=== PATIENT | female | born 1955 | race African-American/Black ===

== ENCOUNTER 2018-09-28 19:32 | Inpatient (IN) | payer MEDICAID ==
[~2018-09-28] VITALS: Ht 160 cm; Wt 79.2 kg
--- NOTE | 2018-09-28 19:36 | NUR ---
Pt presents via [facility], was walking and R side gave out and pt fell, did not strike head and no LOC, 911 called and brought here, evaluated by MD prior to going to CT. Pt with R side weakness R leg, R arm, R side facial droop noted. To CT immediately with ACLS care.
--- NOTE | 2018-09-28 19:38 | NUR ---
WOJCIECH veronica blood and given to lab, labeled once pt registered.
--- NOTE | 2018-09-28 19:55 | NUR ---
ERP at bedside for patient assessment.
[2018-09-28] MEDS ORDERED: OMNIPAQUE 350 MG/ML, 100ML BOTTLE ONE (19:57)
[2018-09-28 19:58] LABS: INTERNATIONAL NORMALIZED RATIO 0.99 (0.93-1.1); PROTHROMBIN TIME 10.4 Seconds (9.6-11.5)
--- NOTE | 2018-09-28 20:04 | NUR ---
dg ( [facility] ) [phone]
[2018-09-28 20:14] LABS: BASOPHILS # (AUTO) 0.03 x10^3/uL (0-0.1); BASOPHILS % (AUTO) 0 % (0-1); EOSINOPHILS # (AUTO) 0.02 x10^3/uL (0-0.4); EOSINOPHILS % (AUTO) 0 % (1-7); LYMPHOCYTES % (AUTO) 45 % (22-44); MD NO; MEAN CORPUSCULAR HEMOGLOBIN 28.9 pg (27.0-34.8); MEAN CORPUSCULAR VOLUME 90.6 fL (80-100); MEAN PLATELET VOLUME 10.2 fL (7.4-10.4); MONOCYTES # (AUTO) 0.52 x10^3/uL (0.2-0.8); MONOCYTES % (AUTO) 6 % (2-9); NEUTROPHILS # (AUTO) 4.18 x10^3/uL (1.8-6.8); NEUTROPHILS % (AUTO) 48 % (42-75); PLATELET COUNT 285 x10^3/uL (130-400); RED BLOOD COUNT 4.93 x10^6/uL (3.82-5.3); RED CELL DISTRIBUTION WIDTH 18.4 % (9.6-15.2)
[2018-09-28] MEDS ORDERED: ASPIRIN 81 MG TABLET CHEW ONE (20:25)
--- NOTE | 2018-09-28 20:27 | NUR ---
Neurologist at bedside. patient urinated on bed. cleaned.
--- NOTE | 2018-09-28 20:29 | NUR ---
per patient she woke up this morning and unable to get up in bed.
[2018-09-28] MEDS ORDERED: ASPIRIN 81 MG TABLET CHEW PO ONE (20:30)
[2018-09-28] MEDS ORDERED: LABETALOL 5MG/ML, 20ML IVPush ONE (20:30)
--- NOTE | 2018-09-28 20:56 | NUR ---
bed glass provided. PA hospitalist at bedside.
[2018-09-28] MEDS ORDERED: SODIUM CHLORIDE 0.9%, 500ML IVBOLUS ONE (21:00)
--- NOTE | 2018-09-28 21:17 | NUR ---
bed assigned. report to KRISTA Maxwell.
[2018-09-28] MEDS ORDERED: BISACODYL 10 MG SUPP PR PRN (21:30)
[2018-09-28] MEDS ORDERED: POLYETHYLENE GLYCOL 17 GM PACKET PO PRN (21:30)
[2018-09-28] MEDS ORDERED: DOCUSATE 100 MG CAPSULE PO PRN (21:30)
[2018-09-28] MEDS ORDERED: LABETALOL 5MG/ML, 20ML IV PRN (21:30)
[2018-09-28] MEDS ORDERED: ONDANSETRON 4 MG TABLET PO PRN (21:30)
[2018-09-28 21:55] VITALS: BP 216/126
[2018-09-28 22:00] VITALS: BP 208/135
[2018-09-28 22:09] LABS: HEMOGLOBIN A1C 7.9 % (4.2-6.3)
[2018-09-28 22:39] VITALS: BP 208/135
[2018-09-28] MEDS: ATORVASTATIN 40 MG TABLET PO SCH (23:24)
[2018-09-28 23:26] VITALS: BP 188/123
[2018-09-29] VITALS (9 sets, daily range): BP systolic 171–236; BP diastolic 105–139
[2018-09-29] MEDS: INSULIN LISPRO 100 UNITS/ML, PEN SQ-INSULIN SCH ×5 (00:33→20:31)
[2018-09-29 05:33] LABS: BASOPHILS # (AUTO) 0.01 x10^3/uL (0-0.1); BASOPHILS % (AUTO) 0 % (0-1); EOSINOPHILS # (AUTO) 0.01 x10^3/uL (0-0.4); EOSINOPHILS % (AUTO) 0 % (1-7); LYMPHOCYTES # (AUTO) 2.43 x10^3/uL (1-3.4); LYMPHOCYTES % (AUTO) 29 % (22-44); MD NO; MEAN CORPUSCULAR HEMOGLOBIN 28.5 pg (27.0-34.8); MEAN CORPUSCULAR HGB CONC 31.8 g/dL (32.4-35.8); MEAN CORPUSCULAR VOLUME 89.6 fL (80-100); MEAN PLATELET VOLUME 9.9 fL (7.4-10.4); MONOCYTES # (AUTO) 0.28 x10^3/uL (0.2-0.8); MONOCYTES % (AUTO) 3 % (2-9); NEUTROPHILS # (AUTO) 5.73 x10^3/uL (1.8-6.8); NEUTROPHILS % (AUTO) 68 % (42-75); PLATELET COUNT 259 x10^3/uL (130-400); RED BLOOD COUNT 4.57 x10^6/uL (3.82-5.3); RED CELL DISTRIBUTION WIDTH 18.4 % (9.6-15.2)
[2018-09-29 06:11] LABS: ALANINE AMINOTRANSFERASE 20 U/L (12-78); ANION GAP 11 mmol/L (5-15); CHLORIDE 104 mmol/L (98-107); CHOLESTEROL, TOTAL 385 mg/dL (140-239)
[2018-09-29 06:13] LABS: ALKALINE PHOSPHATASE 171 U/L (45-117); BILIRUBIN,TOTAL 0.7 mg/dL (0.2-1.0); CHOL/HDL RATIO 5.4; HDL CHOL % 18 % (28-40); HDL CHOLESTEROL (DIRECT) 71 mg/dL (40-60); LDL CHOLESTEROL,CALCULATED 277 mg/dL (54-169); LDL/HDL RATIO 3.9 (0.5-3.0); TOTAL PROTEIN 7.6 g/dL (6.4-8.2); TRIGLYCERIDES 186 mg/dL (50-200); VLDL CHOLESTEROL 37 mg/dL (0-25)
[2018-09-29] MEDS: ASPIRIN 81 MG TABLET CHEW PO/NG SCH (08:52)
[2018-09-29] MEDS: ATORVASTATIN 40 MG TABLET PO SCH (19:46)
[2018-09-29] MEDS: AMLODIPINE 5 MG TABLET PO SCH (19:46)
[2018-09-29 22:17] LABS: MICROSCOPIC INDICATED
[2018-09-29 22:18] LABS: CULTURE INDICATED? YES
[2018-09-30] VITALS (7 sets, daily range): BP systolic 172–201; BP diastolic 99–133
[2018-09-30] MEDS: ACETAMINOPHEN 650 MG/20.3 ML UDC PO PRN ×4 (04:21→21:59)
[2018-09-30] MEDS: INSULIN LISPRO 100 UNITS/ML, PEN SQ-INSULIN SCH ×4 (07:00→21:08)
[2018-09-30 07:03] LABS: ANION GAP 13 mmol/L (5-15); CHLORIDE 101 mmol/L (98-107); CREATININE 1.73 mg/dL (0.55-1.02)
[2018-09-30] MEDS: CLOPIDOGREL 75 MG TABLET PO SCH (08:50)
[2018-09-30] MEDS: AMLODIPINE 5 MG TABLET PO SCH ×2 (08:50→21:07)
[2018-09-30] MEDS: ASPIRIN 81 MG TABLET CHEW PO/NG SCH (08:51)
[2018-09-30] MEDS: SODIUM CHLORIDE 0.9% 1,000 ML IV SCH ×3 (09:30→23:08)
[2018-09-30] MEDS: METOPROLOL SUCCINATE 50 MG TAB.ER.24H PO SCH (12:47)
[2018-09-30] MEDS: ATORVASTATIN 80 MG TABLET PO SCH (21:07)
[2018-10-01] VITALS (7 sets, daily range): BP systolic 153–194; BP diastolic 91–126
[2018-10-01] MEDS: ACETAMINOPHEN 650 MG/20.3 ML UDC PO PRN (02:03)
[2018-10-01] MEDS: METOPROLOL SUCCINATE 50 MG TAB.ER.24H PO SCH (05:02)
[2018-10-01] MEDS: SODIUM CHLORIDE 0.9% 1,000 ML IV SCH (05:03)
[2018-10-01 05:17] LABS: ANION GAP 11 mmol/L (5-15); CALCIUM 8.6 mg/dL (8.5-10.1); CHLORIDE 107 mmol/L (98-107)
[2018-10-01 05:20] LABS: CREATININE 1.54 mg/dL (0.55-1.02)
[2018-10-01 05:34] LABS: MEAN CORPUSCULAR HEMOGLOBIN 27.8 pg (27.0-34.8); MEAN CORPUSCULAR HGB CONC 30.9 g/dL (32.4-35.8); MEAN CORPUSCULAR VOLUME 89.9 fL (80-100); MEAN PLATELET VOLUME 10.5 fL (7.4-10.4); PLATELET COUNT 263 x10^3/uL (130-400); RED BLOOD COUNT 4.57 x10^6/uL (3.82-5.3); RED CELL DISTRIBUTION WIDTH 18.8 % (9.6-15.2)
[2018-10-01 05:47] LABS: MD YES
[2018-10-01 05:50] LABS: <PLATELET ESTIMATE> ADEQUATE; <PLT MORPHOLOGY> NORMAL PLT MORPH; ANISOCYTOSIS 1+; EOS#(MANUAL) 0.17 x10^3/uL (0.0-0.4); EOS% (MANUAL) 2 % (1-7); LYMPH#(MANUAL) 2.02 x10^3/uL (1-3.4); LYMPHS% (MANUAL) 24 % (22-44); MONOS#(MANUAL) 0.25 x10^3/uL (0.3-2.7); MONOS% (MANUAL) 3 % (2-9); SEG#(MANUAL) 5.96 x10^3/uL (1.8-6.8); SEGS% (MANUAL) 71 % (42-75)
[2018-10-01] MEDS ORDERED: METOPROLOL SUCCINATE 50 MG TAB.ER.24H PO SCH (06:00)
[2018-10-01] MEDS: INSULIN LISPRO 100 UNITS/ML, PEN SQ-INSULIN SCH ×4 (07:00→21:00)
[2018-10-01] MEDS: CLOPIDOGREL 75 MG TABLET PO SCH (10:37)
[2018-10-01] MEDS: ASPIRIN 81 MG TABLET CHEW PO/NG SCH (10:37)
[2018-10-01] MEDS: hydrALAzine 20 MG/ML, 1ML IV PRN ×2 (10:38→20:11)
[2018-10-01] MEDS: AMLODIPINE 5 MG TABLET PO SCH ×2 (10:38→21:00)
[2018-10-01] MEDS ORDERED: CHLORDIAZEPOXIDE 25 MG CAPSULE PO PRN ×2 (14:30)
[2018-10-01] MEDS ORDERED: CHLORDIAZEPOXIDE 10 MG CAPSULE PO PRN (14:30)
[2018-10-01] MEDS: CHLORDIAZEPOXIDE 25 MG CAPSULE PO PRN ×2 (14:58→15:11)
[2018-10-01] MEDS ORDERED: LORazepam 2 MG/ML, 1ML IV PRN ×5 (21:00)
[2018-10-01] MEDS: ATORVASTATIN 80 MG TABLET PO SCH (21:00)
[2018-10-02] VITALS (10 sets, daily range): BP systolic 138–185; BP diastolic 80–99
[2018-10-02] MEDS: hydrALAzine 20 MG/ML, 1ML IV PRN ×3 (00:34→20:32)
[2018-10-02] MEDS: METOPROLOL SUCCINATE 50 MG TAB.ER.24H PO SCH (05:22)
[2018-10-02 06:39] LABS: CHLORIDE 108 mmol/L (98-107)
[2018-10-02 06:47] LABS: ANION GAP 14 mmol/L (5-15); CALCIUM 8.9 mg/dL (8.5-10.1); CREATININE 1.57 mg/dL (0.55-1.02)
[2018-10-02] MEDS: INSULIN LISPRO 100 UNITS/ML, PEN SQ-INSULIN SCH ×4 (07:00→20:32)
[2018-10-02] MEDS: MULTIVITAMINS/MINERALS TABLET PO SCH (08:59)
[2018-10-02] MEDS: FOLIC ACID 1 MG TABLET PO SCH (08:59)
[2018-10-02] MEDS: ASPIRIN 81 MG TABLET CHEW PO/NG SCH (09:00)
[2018-10-02] MEDS: CLOPIDOGREL 75 MG TABLET PO SCH (09:00)
[2018-10-02] MEDS: AMLODIPINE 5 MG TABLET PO SCH ×2 (09:00→20:14)
[2018-10-02] MEDS ORDERED: THIAMINE 100MG TABLET PO SCH (09:00)
[2018-10-02] MEDS ORDERED: LORazepam 2 MG/ML, 1ML IVPush PRN (11:00)
[2018-10-02] MEDS ORDERED: THIAMINE 100 MG in SODIUM CHLORIDE 0.9% 50 ML IV SCH (11:00)
[2018-10-02] MEDS: POTASSIUM CHLORIDE 20 MEQ, MAGNESIUM SULFATE 1 GM, MVI ADULT 10 ML, THIAMINE 200 MG, FO... IV SCH (11:30)
--- NOTE | 2018-10-02 12:23 | NUR ---
NPO Addendum: 10/02/18 at [address] Amended: Links added.
[2018-10-02] MEDS: ATORVASTATIN 80 MG TABLET PO SCH (20:14)
[2018-10-02] MEDS ORDERED: SODIUM CHLORIDE 0.9% 1,000 ML IV SCH (21:00)
[2018-10-03] VITALS (8 sets, daily range): BP systolic 147–182; BP diastolic 73–109
[2018-10-03] MEDS: METOPROLOL SUCCINATE 50 MG TAB.ER.24H PO SCH (04:57)
[2018-10-03 05:14] LABS: MEAN CORPUSCULAR HEMOGLOBIN 29.3 pg (27.0-34.8); MEAN CORPUSCULAR VOLUME 91.5 fL (80-100); MEAN PLATELET VOLUME 10.3 fL (7.4-10.4); PLATELET COUNT 190 x10^3/uL (130-400); RED BLOOD COUNT 2.89 x10^6/uL (3.82-5.3); RED CELL DISTRIBUTION WIDTH 19.4 % (9.6-15.2)
[2018-10-03 05:15] LABS: ANION GAP 10 mmol/L (5-15); CALCIUM 8.3 mg/dL (8.5-10.1); CHLORIDE 114 mmol/L (98-107)
[2018-10-03 05:18] LABS: CREATININE 1.78 mg/dL (0.55-1.02)
[2018-10-03 05:54] LABS: MD YES
[2018-10-03 05:56] LABS: <PLATELET ESTIMATE> ADEQUATE; <PLT MORPHOLOGY> NORMAL PLT MORPH; ANISOCYTOSIS 1+; LYMPH#(MANUAL) 1.23 x10^3/uL (1-3.4); LYMPHS% (MANUAL) 14 % (22-44); SEG#(MANUAL) 7.57 x10^3/uL (1.8-6.8); SEGS% (MANUAL) 86 % (42-75)
[2018-10-03] MEDS: INSULIN LISPRO 100 UNITS/ML, PEN SQ-INSULIN SCH ×4 (07:22→23:36)
[2018-10-03 07:53] LABS: ACETONE, SERUM Large (80mg/dL) mg/dL (Negative)
[2018-10-03 08:22] LABS: FIO2 ROOM AIR %
[2018-10-03 08:35] LABS: ANION GAP 10 mmol/L (5-15); CALCIUM 8.5 mg/dL (8.5-10.1); CHLORIDE 116 mmol/L (98-107)
[2018-10-03] MEDS: LACTATED RINGERS 1,000 ML IV SCH ×2 (09:28→23:42)
[2018-10-03] MEDS ORDERED: SODIUM CHLORIDE 0.9%, 500ML IVBOLUS ONE (09:30)
[2018-10-03 09:49] LABS: % IRON SATURATION 65 % (20-55); IRON LEVEL 149 mcg/dL (50-170); TOTAL IRON BINDING CAPACITY 230 mcg/dL (250-450)
[2018-10-03] MEDS: hydrALAzine 20 MG/ML, 1ML IV PRN ×2 (11:28→16:16)
[2018-10-03] MEDS: POTASSIUM CHLORIDE 20 MEQ, MAGNESIUM SULFATE 1 GM, MVI ADULT 10 ML, THIAMINE 200 MG, FO... IV SCH (12:02)
[2018-10-03] MEDS: FOLIC ACID 1 MG TABLET PO SCH (14:51)
[2018-10-03] MEDS: MULTIVITAMINS/MINERALS TABLET PO SCH (14:51)
[2018-10-03] MEDS: AMLODIPINE 5 MG TABLET PO SCH ×2 (14:52→23:36)
[2018-10-03] MEDS: CLOPIDOGREL 75 MG TABLET PO SCH (14:52)
[2018-10-03] MEDS: ASPIRIN 81 MG TABLET CHEW PO/NG SCH (14:52)
[2018-10-03 19:18] LABS: ANION GAP 10 mmol/L (5-15); CALCIUM 9.2 mg/dL (8.5-10.1); CHLORIDE 119 mmol/L (98-107)
[2018-10-03 19:19] LABS: CREATININE 1.65 mg/dL (0.55-1.02)
[2018-10-03] MEDS: ATORVASTATIN 80 MG TABLET PO SCH (23:36)
[2018-10-03] MEDS: INSULIN GLARGINE 100 UNITS/ML, PEN SQ-INSULIN SCH (23:37)
[2018-10-04] VITALS (7 sets, daily range): BP systolic 145–187; BP diastolic 82–94
[2018-10-04] MEDS: hydrALAzine 20 MG/ML, 1ML IV PRN ×2 (00:57→18:46)
[2018-10-04 06:03] LABS: BASOPHILS # (AUTO) 0.03 x10^3/uL (0-0.1); BASOPHILS % (AUTO) 0 % (0-1); EOSINOPHILS % (AUTO) 0 % (1-7); LYMPHOCYTES # (AUTO) 1.62 x10^3/uL (1-3.4); LYMPHOCYTES % (AUTO) 11 % (22-44); MD NO; MEAN CORPUSCULAR HEMOGLOBIN 29.8 pg (27.0-34.8); MEAN CORPUSCULAR HGB CONC 32.3 g/dL (32.4-35.8); MEAN PLATELET VOLUME 10.4 fL (7.4-10.4); MONOCYTES # (AUTO) 0.63 x10^3/uL (0.2-0.8); MONOCYTES % (AUTO) 4 % (2-9); NEUTROPHILS # (AUTO) 12.46 x10^3/uL (1.8-6.8); NEUTROPHILS % (AUTO) 85 % (42-75); PLATELET COUNT 174 x10^3/uL (130-400); RED BLOOD COUNT 2.66 x10^6/uL (3.82-5.3); RED CELL DISTRIBUTION WIDTH 19.6 % (9.6-15.2)
[2018-10-04 06:10] LABS: ANION GAP 11 mmol/L (5-15); CALCIUM 9.4 mg/dL (8.5-10.1); CHLORIDE 118 mmol/L (98-107)
[2018-10-04 06:12] LABS: CREATININE 1.68 mg/dL (0.55-1.02)
[2018-10-04] MEDS: MULTIVITAMINS/MINERALS TABLET PO SCH (08:20)
[2018-10-04] MEDS: ASPIRIN 81 MG TABLET CHEW PO/NG SCH (08:20)
[2018-10-04] MEDS: FOLIC ACID 1 MG TABLET PO SCH (08:21)
[2018-10-04] MEDS: CLOPIDOGREL 75 MG TABLET PO SCH (08:21)
[2018-10-04] MEDS: METOPROLOL TARTRATE 25 MG TABLET NG SCH ×2 (08:21→17:06)
[2018-10-04] MEDS: AMLODIPINE 5 MG TABLET PO SCH ×2 (08:21→21:22)
[2018-10-04] MEDS: INSULIN LISPRO 100 UNITS/ML, PEN SQ-INSULIN SCH ×4 (08:22→21:23)
[2018-10-04] MEDS: LACTATED RINGERS 1,000 ML IV SCH ×2 (12:27→23:45)
[2018-10-04] MEDS: POTASSIUM CHLORIDE 20 MEQ, MAGNESIUM SULFATE 1 GM, MVI ADULT 10 ML, THIAMINE 200 MG, FO... IV SCH (13:04)
[2018-10-04 19:02] LABS: MEAN CORPUSCULAR HEMOGLOBIN 29.5 pg (27.0-34.8); MEAN CORPUSCULAR HGB CONC 32.3 g/dL (32.4-35.8); MEAN CORPUSCULAR VOLUME 91.4 fL (80-100); MEAN PLATELET VOLUME 10.1 fL (7.4-10.4); PLATELET COUNT 176 x10^3/uL (130-400); RED CELL DISTRIBUTION WIDTH 19.9 % (9.6-15.2)
[2018-10-04 19:43] LABS: MD YES
[2018-10-04 19:45] LABS: BASOS#(MANUAL) 0.12 x10^3/uL (0-0.1); BASOS% (MANUAL) 1 % (0-1); LYMPH#(MANUAL) 1.95 x10^3/uL (1-3.4); LYMPHS% (MANUAL) 16 % (22-44); MONOS#(MANUAL) 0.49 x10^3/uL (0.3-2.7); MONOS% (MANUAL) 4 % (2-9); SEG#(MANUAL) 9.64 x10^3/uL (1.8-6.8); SEGS% (MANUAL) 79 % (42-75)
[2018-10-04 19:46] LABS: <PLATELET ESTIMATE> ADEQUATE; <PLT MORPHOLOGY> NORMAL PLT MORPH; ANISOCYTOSIS 1+; HYPOCHROMIA 1+
[2018-10-04] MEDS: ATORVASTATIN 80 MG TABLET PO SCH (21:22)
[2018-10-04] MEDS: INSULIN GLARGINE 100 UNITS/ML, PEN SQ-INSULIN SCH (21:24)
[2018-10-05] VITALS (8 sets, daily range): BP systolic 148–173; BP diastolic 76–93
[2018-10-05] MEDS: hydrALAzine 20 MG/ML, 1ML IV PRN ×2 (01:18→11:14)
[2018-10-05] MEDS: ACETAMINOPHEN 650 MG/20.3 ML UDC PO PRN (04:31)
[2018-10-05] MEDS: METOPROLOL TARTRATE 25 MG TABLET NG SCH ×3 (05:22→17:58)
[2018-10-05 05:59] LABS: BASOPHILS % (AUTO) 0 % (0-1); EOSINOPHILS # (AUTO) 0.03 x10^3/uL (0-0.4); EOSINOPHILS % (AUTO) 0 % (1-7); LYMPHOCYTES # (AUTO) 1.47 x10^3/uL (1-3.4); LYMPHOCYTES % (AUTO) 12 % (22-44); MD NO; MEAN CORPUSCULAR HGB CONC 31.6 g/dL (32.4-35.8); MEAN CORPUSCULAR VOLUME 91.8 fL (80-100); MONOCYTES # (AUTO) 0.42 x10^3/uL (0.2-0.8); MONOCYTES % (AUTO) 4 % (2-9); NEUTROPHILS # (AUTO) 10.04 x10^3/uL (1.8-6.8); NEUTROPHILS % (AUTO) 84 % (42-75); PLATELET COUNT 188 x10^3/uL (130-400); RED BLOOD COUNT 2.51 x10^6/uL (3.82-5.3); RED CELL DISTRIBUTION WIDTH 19.9 % (9.6-15.2)
[2018-10-05 06:06] LABS: ANION GAP 7 mmol/L (5-15); CALCIUM 9.7 mg/dL (8.5-10.1); CHLORIDE 116 mmol/L (98-107)
[2018-10-05 06:07] LABS: CREATININE 1.46 mg/dL (0.55-1.02)
[2018-10-05] MEDS: AMLODIPINE 5 MG TABLET PO SCH ×2 (08:07→20:00)
[2018-10-05] MEDS: FOLIC ACID 1 MG TABLET PO SCH (08:07)
[2018-10-05] MEDS: MULTIVITAMINS/MINERALS TABLET PO SCH (08:07)
[2018-10-05] MEDS: CLOPIDOGREL 75 MG TABLET PO SCH (08:08)
[2018-10-05] MEDS: INSULIN LISPRO 100 UNITS/ML, PEN SQ-INSULIN SCH ×4 (08:08→20:02)
[2018-10-05] MEDS: ASPIRIN 81 MG TABLET CHEW PO/NG SCH (08:08)
[2018-10-05] MEDS ORDERED: ZOLPIDEM 5MG TABLET PO PRN (16:30)
[2018-10-05] MEDS ORDERED: DOCUSATE 50 MG/5 ML, 10ML UDC PO PRN (20:00)
[2018-10-05] MEDS: ATORVASTATIN 80 MG TABLET PO SCH (20:00)
[2018-10-05] MEDS: INSULIN GLARGINE 100 UNITS/ML, PEN SQ-INSULIN SCH (20:03)
[2018-10-06] VITALS (8 sets, daily range): BP systolic 158–193; BP diastolic 75–103
[2018-10-06] MEDS: hydrALAzine 20 MG/ML, 1ML IV PRN (04:04)
[2018-10-06 04:58] LABS: CHLORIDE 117 mmol/L (98-107); MEAN CORPUSCULAR HEMOGLOBIN 27.9 pg (27.0-34.8); MEAN CORPUSCULAR HGB CONC 30.4 g/dL (32.4-35.8); MEAN CORPUSCULAR VOLUME 91.8 fL (80-100); MEAN PLATELET VOLUME 10.6 fL (7.4-10.4); PLATELET COUNT 220 x10^3/uL (130-400); RED BLOOD COUNT 2.55 x10^6/uL (3.82-5.3); RED CELL DISTRIBUTION WIDTH 20.7 % (9.6-15.2)
[2018-10-06 05:06] LABS: ANION GAP 7 mmol/L (5-15); CALCIUM 9.6 mg/dL (8.5-10.1); CREATININE 1.39 mg/dL (0.55-1.02)
[2018-10-06 05:12] LABS: MD YES
[2018-10-06 05:14] LABS: <PLATELET ESTIMATE> ADEQUATE; <PLT MORPHOLOGY> NORMAL PLT MORPH; ANISOCYTOSIS 1+; LYMPH#(MANUAL) 1.86 x10^3/uL (1-3.4); LYMPHS% (MANUAL) 16 % (22-44); MONOS% (MANUAL) 6 % (2-9); POLYCHROMASIA 1+; SEG#(MANUAL) 9.05 x10^3/uL (1.8-6.8); SEGS% (MANUAL) 78 % (42-75)
[2018-10-06] MEDS: METOPROLOL TARTRATE 25 MG TABLET NG SCH ×2 (07:07→20:57)
[2018-10-06] MEDS: CLOPIDOGREL 75 MG TABLET PO SCH (09:35)
[2018-10-06] MEDS: ASPIRIN 81 MG TABLET CHEW PO/NG SCH (09:35)
[2018-10-06] MEDS: FOLIC ACID 1 MG TABLET PO SCH (09:35)
[2018-10-06] MEDS: AMLODIPINE 5 MG TABLET PO SCH ×2 (09:35→20:57)
[2018-10-06] MEDS: PRAMIPEXOLE 0.125MG TABLET PO SCH (09:35)
[2018-10-06] MEDS: MULTIVITAMINS/MINERALS TABLET PO SCH (09:35)
[2018-10-06] MEDS: INSULIN LISPRO 100 UNITS/ML, PEN SQ-INSULIN SCH ×4 (09:36→20:59)
[2018-10-06] MEDS: ATORVASTATIN 80 MG TABLET PO SCH (20:57)
[2018-10-06] MEDS: INSULIN GLARGINE 100 UNITS/ML, PEN SQ-INSULIN SCH (20:58)
[2018-10-07] VITALS (8 sets, daily range): BP systolic 136–173; BP diastolic 73–98
[2018-10-07] MEDS: hydrALAzine 20 MG/ML, 1ML IV PRN ×2 (01:20→16:16)
[2018-10-07 02:07] LABS: OCCULT BLOOD POSITIVE (NEGATIVE)
[2018-10-07] MEDS: METOPROLOL TARTRATE 25 MG TABLET NG SCH ×2 (05:40→21:46)
[2018-10-07] MEDS: INSULIN LISPRO 100 UNITS/ML, PEN SQ-INSULIN SCH ×4 (09:44→21:46)
[2018-10-07] MEDS: AMLODIPINE 5 MG TABLET PO SCH ×2 (09:45→21:46)
[2018-10-07] MEDS: PRAMIPEXOLE 0.125MG TABLET PO SCH (09:45)
[2018-10-07] MEDS: FOLIC ACID 1 MG TABLET PO SCH (09:45)
[2018-10-07] MEDS: MULTIVITAMINS/MINERALS TABLET PO SCH (09:45)
[2018-10-07 11:27] LABS: CALCIUM 9.4 mg/dL (8.5-10.1); CREATININE 1.45 mg/dL (0.55-1.02)
[2018-10-07 11:34] LABS: CHLORIDE 118 mmol/L (98-107)
[2018-10-07 11:35] LABS: ANION GAP 6 mmol/L (5-15)
[2018-10-07] MEDS ORDERED: CEFAZOLIN 1,000 MG ONE (14:36)
[2018-10-07] MEDS ORDERED: PROPOFOL 10 MG/ML, 20ML ONE (15:02)
[2018-10-07] MEDS: INSULIN GLARGINE 100 UNITS/ML, PEN SQ-INSULIN SCH (21:46)
[2018-10-07] MEDS: ATORVASTATIN 80 MG TABLET PO SCH (21:46)
[2018-10-08] VITALS (7 sets, daily range): BP systolic 89–144; BP diastolic 55–85
[2018-10-08] MEDS: ACETAMINOPHEN 650 MG/20.3 ML UDC PO PRN ×2 (06:04→17:05)
[2018-10-08] MEDS: METOPROLOL TARTRATE 25 MG TABLET NG SCH ×2 (06:05→17:05)
[2018-10-08] MEDS ORDERED: ROCURONIUM 10MG/ML,5ML ONE (07:19)
[2018-10-08] MEDS ORDERED: MIDAZOLAM 1 MG/ML, 5ML ONE (07:19)
[2018-10-08] MEDS: AMLODIPINE 5 MG TABLET PO SCH ×2 (09:14→22:39)
[2018-10-08] MEDS: MULTIVITAMINS/MINERALS TABLET PO SCH (09:14)
[2018-10-08] MEDS: FOLIC ACID 1 MG TABLET PO SCH (09:14)
[2018-10-08] MEDS: PRAMIPEXOLE 0.125MG TABLET PO SCH (09:14)
[2018-10-08] MEDS: INSULIN LISPRO 100 UNITS/ML, PEN SQ-INSULIN SCH ×3 (09:15→22:38)
[2018-10-08 10:52] LABS: ANION GAP 12 mmol/L (5-15); CALCIUM 9.3 mg/dL (8.5-10.1); CHLORIDE 117 mmol/L (98-107); CREATININE 2.13 mg/dL (0.55-1.02)
[2018-10-08] MEDS: SODIUM CHLORIDE 0.45% 1,000 ML IV SCH ×2 (14:23→23:15)
[2018-10-08 16:42] LABS: MICROSCOPIC AUTO
[2018-10-08 16:45] LABS: CULTURE INDICATED? NO
[2018-10-08 22:09] LABS: ANION GAP 18 mmol/L (5-15); CALCIUM 9.4 mg/dL (8.5-10.1); CHLORIDE 114 mmol/L (98-107); CREATININE 3.68 mg/dL (0.55-1.02); INTERNATIONAL NORMALIZED RATIO 1.05 (0.93-1.1)
[2018-10-08 22:21] LABS: TROPONIN I 0.128 ng/mL (0.000-0.045)
[2018-10-08 22:25] LABS: MEAN CORPUSCULAR HGB CONC 31.2 g/dL (32.4-35.8); MEAN PLATELET VOLUME 9.9 fL (7.4-10.4); PLATELET COUNT 330 x10^3/uL (130-400); RED BLOOD COUNT 2.83 x10^6/uL (3.82-5.3)
[2018-10-08 22:29] LABS: MD YES
[2018-10-08 22:38] LABS: ANISOCYTOSIS 1+; BANDS%(MANUAL) 16 % (0-7); LYMPH#(MANUAL) 1.96 x10^3/uL (1-3.4); LYMPHS% (MANUAL) 35 % (22-44); METAMYELOCYTES# (MANUAL) 0.28 x10^3/uL (0-0); METAMYELOCYTES% (MANUAL) 5 % (0-1); MONOS#(MANUAL) 0.11 x10^3/uL (0.3-2.7); MONOS% (MANUAL) 2 % (2-9); MYELOCYTES# (MANUAL) 0.06 x10^3/uL (0-0); MYELOCYTES% (MANUAL) 1 % (0-0); NRBC % (MANUAL) 2 % (0-1); SEGS% (MANUAL) 41 % (42-75)
[2018-10-08 22:39] LABS: <PLATELET ESTIMATE> ADEQUATE; LARGE PLATELETS 1+
[2018-10-08] MEDS: INSULIN GLARGINE 100 UNITS/ML, PEN SQ-INSULIN SCH (22:39)
[2018-10-08 22:44] LABS: HYPOCHROMIA 1+
[2018-10-08] MEDS ORDERED: DEXTROSE 5% 500 ML IV SCH (23:00)
[2018-10-08] MEDS: ATORVASTATIN 80 MG TABLET PO SCH (23:08)
[2018-10-09] MEDS ORDERED: SODIUM CHLORIDE 0.9%, 500ML IVBOLUS ONE
[2018-10-09] MEDS ORDERED: PROPOFOL 100 ML IV PRN (00:03)
[2018-10-09] MEDS ORDERED: NOREPINEPHRINE 4 MG in SODIUM CHLORIDE 0.9% 246 ML IV PRN ×2 (00:03)
[2018-10-09] MEDS ORDERED: LACTULOSE 20 GM/30 ML UDC NG PRN (00:30)
[2018-10-09] MEDS ORDERED: PHARMACY MAY ADJ FOR RENAL FX MC SCH (00:30)
[2018-10-09] MEDS ORDERED: SENNA 176 MG/5 ML ORAL SOL NG PRN (00:30)
[2018-10-09] MEDS ORDERED: SENNA/DOCUSATE TABLET NG PRN (00:30)
[2018-10-09] MEDS ORDERED: FAMOTIDINE 20 MG/2 ML IV SCH (00:30)
[2018-10-09] MEDS ORDERED: SODIUM CHLORIDE 0.9%, 500ML IV ONE (00:30)
[2018-10-09] MEDS ORDERED: FENTANYL PF 100 MCG/2ML IVPush PRN (00:30)
[2018-10-09] MEDS ORDERED: BISACODYL 10 MG SUPP PR PRN (00:30)
[2018-10-09] MEDS ORDERED: VASOPRESSIN 100 UNIT in SODIUM CHLORIDE 0.9% 495 ML IV PRN (00:30)
[2018-10-09] MEDS ORDERED: LIDOCAINE-MPF 1%, 2ML ENDO PRN (00:30)
[2018-10-09] MEDS ORDERED: SODIUM BICARB 8.4%, 50ML SYRINGE IVPush ONE ×2 (01:00→06:30)
[2018-10-09] MEDS: NOREPINEPHRINE 8 MG in SODIUM CHLORIDE 0.9% 242 ML IV PRN ×2 (02:46→08:55)
[2018-10-09] MEDS: ALBUTEROL/IPRATROPIUM 2.5MG/0.5MG, 3 ML INLINE SCH ×4 (03:08→10:45)
[2018-10-09] MEDS: INSULIN LISPRO 100 UNITS/ML, PEN SQ-INSULIN SCH ×2 (04:28→11:46)
[2018-10-09] MEDS ORDERED: DEXTROSE 50%, 50ML SYRINGE IVPush ONE ×2 (04:30→06:30)
[2018-10-09 05:49] LABS: ANION GAP 25 mmol/L (5-15); CALCIUM 9.2 mg/dL (8.5-10.1); CHLORIDE 114 mmol/L (98-107); CREATININE 4.12 mg/dL (0.55-1.02)
[2018-10-09] MEDS: METOPROLOL TARTRATE 25 MG TABLET NG SCH (05:49)
[2018-10-09 05:53] LABS: TROPONIN I 0.174 ng/mL (0.000-0.045)
[2018-10-09] MEDS ORDERED: INSULIN REGULAR 100 UNITS/ML, 3ML VIAL IVPush ONE (06:30)
[2018-10-09] MEDS ORDERED: SODIUM BICARBONATE 8.4% 100 MEQ in DEXTROSE 5% 1,000 ML IV SCH (06:30)
[2018-10-09] MEDS ORDERED: CALCIUM GLUCONATE 4.6 MEQ in SODIUM CHLORIDE 0.9% 50 ML IV ONE (06:30)
[2018-10-09] MEDS: MULTIVITAMINS/MINERALS TABLET PO SCH (09:00)
[2018-10-09] MEDS: PRAMIPEXOLE 0.125MG TABLET PO SCH (09:00)
[2018-10-09] MEDS: FOLIC ACID 1 MG TABLET PO SCH (09:00)
[2018-10-09] MEDS: AMLODIPINE 5 MG TABLET PO SCH (09:00)
[2018-10-09] MEDS ORDERED: FENTANYL PF 2,500 MCG in SODIUM CHLORIDE 0.9% 200 ML IV PRN (09:00)
[2018-10-09 11:26] LABS: MEAN CORPUSCULAR HEMOGLOBIN 30.5 pg (27.0-34.8); MEAN CORPUSCULAR HGB CONC 32.1 g/dL (32.4-35.8); RED BLOOD COUNT 2.93 x10^6/uL (3.82-5.3); RED CELL DISTRIBUTION WIDTH 21.3 % (9.6-15.2)
[2018-10-09 11:28] LABS: MD YES
[2018-10-09 11:31] LABS: BAND#(MANUAL) 1.65 x10^3/uL; BANDS%(MANUAL) 33 % (0-7); LYMPH#(MANUAL) 1.35 x10^3/uL (1-3.4); LYMPHS% (MANUAL) 27 % (22-44); METAMYELOCYTES% (MANUAL) 6 % (0-1); MONOS% (MANUAL) 2 % (2-9); NRBC % (MANUAL) 5 % (0-1); SEGS% (MANUAL) 32 % (42-75)
[2018-10-09 11:32] LABS: ANISOCYTOSIS 1+
[2018-10-09 11:37] LABS: POLYCHROMASIA 1+
[2018-10-09] MEDS ORDERED: SCOPOLAMINE PATCH, 1.5MG PATCH.TD72 TD STA (14:17)
[2018-10-09] MEDS ORDERED: PROCHLORPERAZINE 5 MG/ML, 2ML IVPush PRN (14:30)
[2018-10-09] MEDS ORDERED: HYDROmorphone 1 MG/ML, 1ML INJ IVPush PRN (14:30)
[2018-10-09] MEDS ORDERED: MORPHINE SULFATE 4 MG/ML, 1ML IVPush PRN (14:30)
[2018-10-09] MEDS ORDERED: HALOPERIDOL 2 MG/ML ORAL SOL SL PRN (14:30)
[2018-10-09] MEDS ORDERED: PROCHLORPERAZINE 25 MG SUPP PR PRN (14:30)
[2018-10-09] MEDS ORDERED: LORazepam INTENSOL 2 MG/ML SL PRN (14:30)
[2018-10-09] MEDS ORDERED: LORazepam 2 MG/ML, 1ML IV PRN (15:30)
[2018-10-09] MEDS ORDERED: MORPHINE 30MG/30ML PCA.SYR IV PRN (15:30)
[2018-10-09] MEDS ORDERED: ATROPINE OPHTH SOLN 1%, 2ML PO PRN (15:30)
[2018-10-09] MEDS ORDERED: LORazepam 2 MG/ML, 1ML IV ONE (15:30)
[2018-10-09] MEDS ORDERED: morphine SULFATE 10 MG/ML, 1ML IV ONE (15:30)
[2018-10-10] MEDS ORDERED: FAMOTIDINE 20 MG/2 ML IV SCH (09:00)
== END 2018-10-09 21:05 | disposition expired | DRG 64 ==
LOC: ED 21:00 → EDIP 21:05 → ED 21:08 → 4WST 21:34 → CCU 10-08 22:18 → CSU 10-08 22:26
PROVIDERS: ADMIT Internal Medicine; ATTEND Internal Medicine
PROC: 5A1935Z Respiratory Ventilation, Less than 24 Consecutive Hours (ICD-10-PCS; principal; 2018-09-28)
PROC: 0BH17EZ Insertion of Endotracheal Airway into Trachea, Via Natural or Artificial Opening (ICD-10-PCS; 2018-09-28)
PROC: 0DH63UZ Insertion of Feeding Device into Stomach, Percutaneous Approach (ICD-10-PCS; 2018-10-07)
DX: I63.9 Cerebral infarction, unspecified (principal); G93.41 Metabolic encephalopathy; I21.A1 Myocardial infarction type 2; J96.00 Acute respiratory failure, unspecified whether with hypoxia or hypercapnia; N17.0 Acute kidney failure with tubular necrosis; E87.0 Hyperosmolality and hypernatremia; E87.2 Acidosis; F10.239 Alcohol dependence with withdrawal, unspecified; G81.91 Hemiplegia, unspecified affecting right dominant side; I16.1 Hypertensive emergency; R41.4 Neurologic neglect syndrome; Z99.11 Dependence on respirator [ventilator] status; D64.9 Anemia, unspecified; R47.01 Aphasia; E11.22 Type 2 diabetes mellitus with diabetic chronic kidney disease; E11.65 Type 2 diabetes mellitus with hyperglycemia; E78.5 Hyperlipidemia, unspecified; E87.8 Other disorders of electrolyte and fluid balance, not elsewhere classified; F17.210 Nicotine dependence, cigarettes, uncomplicated; G25.81 Restless legs syndrome; I12.9 Hypertensive chronic kidney disease with stage 1 through stage 4 chronic kidney disease, or unspecified chronic kidney disease; I49.3 Ventricular premature depolarization; R47.1 Dysarthria and anarthria; J32.0 Chronic maxillary sinusitis; K29.80 Duodenitis without bleeding; N18.3 Chronic kidney disease, stage 3 (moderate); R13.10 Dysphagia, unspecified; R29.810 Facial weakness; T73.0XXA Starvation, initial encounter; Y90.8 Blood alcohol level of 240 mg/100 ml or more; Z79.02 Long term (current) use of antithrombotics/antiplatelets; Z79.82 Long term (current) use of aspirin; Z80.0 Family history of malignant neoplasm of digestive organs; Z82.0 Family history of epilepsy and other diseases of the nervous system; Z91.14 Patient's other noncompliance with medication regimen; Z71.6 Tobacco abuse counseling
CPT/HCPCS: 36415; 36600; 74018; 74230; 99291; J3490; J7620; 70450; 70496; 70498; 70551; 71045; 80047; 80048; 80053; 80061; 81001; 82010; 82272; 82533; 82803; 82962; 83036; 83540; 83550; 83735; 84478; 84484; 85025; 85610; 85730; 87040; 87070; 87077; 87081; 87086; 87186; 87205; 93005; 93306; 94002; 94003; 94640; 96374; B4087; G0378; J0610; J0690; J1815; J2250; J2270; J2704; J3411; J3475; J3480; J7070; Q9967; 92523-GN; J0360; J2060; J7030; J7040; J7050; J7120